=== PATIENT | female | born 1995 | race Hispanic/Latino ===

== ENCOUNTER 2017-04-14 21:48 | Emergency (ER) | payer MEDICAID, OTHER ==
[2017-04-14 22:44] LABS: BASOPHILS % (AUTO) 0.5 % (0.0-5.0); EOSINOPHILS % (AUTO) 0.3 % (0.0-8.0); HEMATOCRIT 39.4 % (36-48); LYMPHOCYTES % (AUTO) 27.4 % (21.0-51.0); MEAN CORPUSCULAR HEMOGLOBIN 30.5 pg (27.0-33.0); MEAN CORPUSCULAR HGB CONC 34.3 g/dL (32.0-36.0); MEAN CORPUSCULAR VOLUME 88.9 fL (79-99); MONOCYTES % (AUTO) 7.6 % (3.0-13.0); NEUTROPHILS % (AUTO) 64.2 % (40.0-77.0); PLATELET COUNT (AUTO) 254 K/uL (130-400); RED BLOOD CELL COUNT(AUTO) 4.43 MIL/uL (4.00-5.50); RED CELL DISTRIBUTION WIDTH 13.3 % (11.0-15.5); WHITE BLOOD COUNT (AUTO) 10.1 K/uL (4.8-10.8)
[2017-04-14 22:56] LABS: CREATININE 0.6 mg/dL (0.5-1.5); POTASSIUM 3.5 mmol/L (3.5-5.1)
[2017-04-14 22:58] LABS: APPEARANCE,URINE Clear (CLEAR); BILIRUBIN,URINE Negative (NEGATIVE); COLOR,URINE Yellow (YELLOW); GLUCOSE, URINE (UA) Negative (NEGATIVE); KETONES,URINE 15 mg/dL (NEGATIVE); LEUKOCYTE ESTERASE ,URINE Small (NEGATIVE); NITRATE,URINE Negative (NEGATIVE); OCCULT BLOOD,URINE Small (NEGATIVE); PROTEIN,URINE Negative (NEGATIVE); UROBILINOGEN,URINE 0.2 mg/dL (0.2-1.0)
[2017-04-14 22:59] LABS: ALBUMIN 4.2 g/dL (3.5-5.0); BILIRUBIN,TOTAL 0.6 mg/dL (0.2-1.0); TOTAL PROTEIN, SERUM 8.4 g/dL (6.0-8.3)
[2017-04-14 23:02] LABS: HCG,QUAL RESULT NEGATIVE (NEGATIVE)
[2017-04-14 23:13] LABS: AMPHET/METH SCREEN,URINE NEGATIVE (NEGATIVE); BARBITURATE SCREEN, URINE NEGATIVE (NEGATIVE); BENZODIAZEPINES SCREEN,URINE NEGATIVE (NEGATIVE); CANNABINOID SCREEN,URINE NEGATIVE (NEGATIVE); COCAINE SCREEN,URINE NEGATIVE (NEGATIVE); OPIATE SCREEN,URINE NEGATIVE (NEGATIVE); PHENCYCLIDINE SCREEN,URINE NEGATIVE (NEGATIVE)
[2017-04-14 23:24] LABS: BACTERIA,URINE None Seen /HPF (None Seen); RBC,URINE 0-1 /HPF (0-1); SQUAMOUS EPITHELIAL CELL,UR Few /LPF (0-2); WBC,URINE 0-1 /HPF (0-1)
== END 2017-04-14 23:35 | disposition home or self-care (01) ==
LOC: EDH 21:48
DX: R10.32 Left lower quadrant pain (principal)
CPT/HCPCS: 36415; 80053; 80305; 81001; 81025; 83690; 85025

== ENCOUNTER 2019-03-27 22:56 | Emergency (ER) | payer OTHER ==
[2019-03-27 23:17] LABS: APPEARANCE,URINE Clear (CLEAR); BILIRUBIN,URINE Negative (NEGATIVE); COLOR,URINE Yellow (YELLOW); GLUCOSE, URINE (UA) Negative (NEGATIVE); KETONES,URINE Negative (NEGATIVE); LEUKOCYTE ESTERASE ,URINE Negative (NEGATIVE); NITRATE,URINE Negative (NEGATIVE); OCCULT BLOOD,URINE Negative (NEGATIVE); PROTEIN,URINE Negative (NEGATIVE)
[2019-03-27 23:20] LABS: HCG,QUAL RESULT NEGATIVE (NEGATIVE)
[2019-03-27] MEDS ORDERED: ONDANSETRON HCL 4 MG/2 ML VIAL ONE (23:20)
[2019-03-27] MEDS ORDERED: KETOROLAC TROMETHAMINE 30MG/ML ONE (23:20)
[2019-03-27] MEDS ORDERED: SODIUM CHLORIDE 0.9% 1000ML 1,000 ML IV ONE (23:21)
[2019-03-27 23:27] LABS: BASOPHILS % (AUTO) 0.3 % (0.0-5.0); EOSINOPHILS % (AUTO) 2.4 % (0.0-8.0); HEMATOCRIT 41.6 % (36-48); LYMPHOCYTES % (AUTO) 29.7 % (21.0-51.0); MEAN CORPUSCULAR HGB CONC 32.9 g/dL (32.0-36.0); MONOCYTES % (AUTO) 6.8 % (3.0-13.0); NEUTROPHILS % (AUTO) 60.5 % (40.0-77.0); PLATELET COUNT (AUTO) 186 K/uL (130-400); RED BLOOD CELL COUNT(AUTO) 4.57 MIL/uL (4.00-5.50); RED CELL DISTRIBUTION WIDTH 12.4 % (11.0-15.5); WHITE BLOOD COUNT (AUTO) 6.3 K/uL (4.8-10.8)
[2019-03-27 23:30] LABS: AMPHET/METH SCREEN,URINE NEGATIVE (NEGATIVE); BARBITURATE SCREEN, URINE NEGATIVE (NEGATIVE); BENZODIAZEPINES SCREEN,URINE NEGATIVE (NEGATIVE); CANNABINOID SCREEN,URINE NEGATIVE (NEGATIVE); COCAINE SCREEN,URINE POSITIVE (NEGATIVE); OPIATE SCREEN,URINE NEGATIVE (NEGATIVE); PHENCYCLIDINE SCREEN,URINE NEGATIVE (NEGATIVE)
[2019-03-27 23:38] LABS: CREATININE 0.7 mg/dL (0.5-1.5); POTASSIUM 3.2 mmol/L (3.5-5.1)
[2019-03-27 23:42] LABS: BILIRUBIN,TOTAL 0.7 mg/dL (0.2-1.0); TOTAL PROTEIN, SERUM 8.1 g/dL (6.0-8.3)
== END 2019-03-28 01:59 | disposition home or self-care (01) ==
LOC: EDH 22:56
DX: R10.84 Generalized abdominal pain (principal); F14.10 Cocaine abuse, uncomplicated; R19.7 Diarrhea, unspecified; R11.10 Vomiting, unspecified
CPT/HCPCS: 36415; 74176; 80053; 80305; 81003; 81025; 83690; 85025; 96361; 96374; 96375; 99285; J1885; J2405; J7030

== ENCOUNTER 2019-08-22 06:08 | Observation (INO) | payer MEDICAID, OTHER ==
[~2019-08-22] VITALS: Ht 154.9 cm; Wt 79.4 kg
[2019-08-22] MEDS ORDERED: ONDANSETRON HCL 4 MG/2 ML VIAL ONE (06:27)
[2019-08-22] MEDS ORDERED: METOCLOPRAMIDE 10 MG/2 ML VIAL ONE (06:27)
[2019-08-22 06:31] LABS: BASOPHILS % (AUTO) 0.3 % (0.0-5.0); EOSINOPHILS % (AUTO) 3.2 % (0.0-8.0); LYMPHOCYTES % (AUTO) 45.3 % (21.0-51.0); MEAN CORPUSCULAR HEMOGLOBIN 32.6 pg (27.0-33.0); MEAN CORPUSCULAR HGB CONC 34.2 g/dL (32.0-36.0); MEAN CORPUSCULAR VOLUME 95.3 fL (79-99); MONOCYTES % (AUTO) 7.9 % (3.0-13.0); NEUTROPHILS % (AUTO) 42.9 % (40.0-77.0); PLATELET COUNT (AUTO) 205 K/uL (130-400); RED BLOOD CELL COUNT(AUTO) 4.51 MIL/uL (4.00-5.50); RED CELL DISTRIBUTION WIDTH 11.6 % (11.0-15.5); WHITE BLOOD COUNT (AUTO) 6.9 K/uL (4.8-10.8)
[2019-08-22 06:42] LABS: CREATININE 0.8 mg/dL (0.5-1.5); POTASSIUM 3.3 mmol/L (3.5-5.1)
[2019-08-22 06:48] LABS: ALBUMIN 3.6 g/dL (3.5-5.0); BILIRUBIN,TOTAL 0.4 mg/dL (0.2-1.0); TOTAL PROTEIN, SERUM 7.6 g/dL (6.0-8.3)
[2019-08-22 06:58] LABS: APPEARANCE,URINE Cloudy (CLEAR); BILIRUBIN,URINE Negative (NEGATIVE); COLOR,URINE Yellow (YELLOW); GLUCOSE, URINE (UA) Negative (NEGATIVE); KETONES,URINE Negative (NEGATIVE); LEUKOCYTE ESTERASE ,URINE Trace (NEGATIVE); NITRATE,URINE Positive (NEGATIVE); OCCULT BLOOD,URINE Negative (NEGATIVE); PROTEIN,URINE Negative (NEGATIVE)
[2019-08-22 07:00] LABS: HCG,QUAL RESULT POSITIVE (NEGATIVE)
[2019-08-22 07:16] LABS: RBC,URINE 0-1 /HPF (0-1)
[2019-08-22 07:17] LABS: BACTERIA,URINE Moderate /HPF (None Seen)
[2019-08-22 07:29] LABS: AMPHET/METH SCREEN,URINE NEGATIVE (NEGATIVE); BARBITURATE SCREEN, URINE NEGATIVE (NEGATIVE); BENZODIAZEPINES SCREEN,URINE NEGATIVE (NEGATIVE); CANNABINOID SCREEN,URINE NEGATIVE (NEGATIVE); COCAINE SCREEN,URINE POSITIVE (NEGATIVE); OPIATE SCREEN,URINE NEGATIVE (NEGATIVE); PHENCYCLIDINE SCREEN,URINE NEGATIVE (NEGATIVE)
[2019-08-22 08:19] LABS: INR 0.91 (0.85-1.15); PARTIAL THROMBOPLASTIN TIME 25.4 SEC (26.3-35.5); PROTHROMBIN TIME 9.9 SEC (9.6-11.6)
--- NOTE | 2019-08-22 10:50 | NUR ---
DR. RAVINDRA GABRIEL AT BEDSIDE TO ASSESS AND DISCUSS POC WITH PT. PT IN AGREEMENT. QUESTIONS ANSWERED.
[2019-08-22] MEDS ORDERED: ACETAMINOPHEN EXTRA STRENGTH 500 MG TABLET PO PRN ×2 (12:00)
[2019-08-22 12:12] VITALS: BP 124/76
[2019-08-22] MEDS: LACTATED RINGERS 1000ML 1,000 ML IV SCH ×2 (13:23→22:01)
--- NOTE | 2019-08-22 15:11 | NUR ---
+UDS FOR COCAINE SW met with pt who was admitted for ectopic . Pt stated that she lives with her 5yro in a rental home. Pt is to [place] [facility], but they are currently . Pt drives, works, is self pay and gets no government assistance. Pt states she was not aware she was until she gave into ER. Pt informed that she was positive for cocaine at admission. Pt states she did use 2 days ago when she was out with friends. When asked where was son, pt stated he was with her mother Claudette Galicia [phone]. "He lives with her". I asked again, "does he live with you or your mother?" "He lives with my mother". Sw offered substance abuse resources and pt refused "I don't need them". Sw called local CPS office, pt has hx with CPS but no open case. Report made to CPS #[id number] to Linda jamison [phone].
[2019-08-22 16:26] VITALS: BP 104/55
[2019-08-22 19:49] VITALS: BP 128/65
--- NOTE | 2019-08-22 20:00 | NUR ---
STATUS NPO AFTER MIDNITE PER NURSES REPORT Addendum: 08/23/19 at 0313 by MITZI URBINA LVN Amended: Links added.
[2019-08-22 23:48] VITALS: BP 118/76
[2019-08-23] VITALS (20 sets, daily range): BP systolic 93–126; BP diastolic 38–83
--- NOTE | 2019-08-23 08:00 | NUR ---
PATIENT SIGNED CONSENT. PATIENT VERBALIZED UNDERSTANDING.
--- NOTE | 2019-08-23 08:20 | NUR ---
PATIENT LEFT UNIT VIA BED ACCOMPANIED BY MIRA TORREZ AND MAYRA DAMICO FOR PROCEDURE.
[2019-08-23] MEDS: LACTATED RINGERS 1000ML 1,000 ML IV SCH ×2 (08:30→10:55)
[2019-08-23] MEDS ORDERED: BUPIVACAINE/PF 0.5% 30ML VIAL ONE (08:40)
--- NOTE | 2019-08-23 08:40 | NUR ---
NANCY SLOAN OR NURSE INFORMED DR GABRIEL OF POSITIVE NITRATES AND RECEIVED NEW ORDERS.
[2019-08-23] MEDS ORDERED: CEFAZOLIN SODIUM 1 GM VIAL ONE (08:43)
--- NOTE | 2019-08-23 08:45 | NUR ---
OR PT TAKEN TO OR VIA BED IN NO DISTRESS AT THIS TIME
[2019-08-23] MEDS ORDERED: LIDOCAINE PF 2% 5ML ABBOJECT ONE (08:46)
[2019-08-23] MEDS ORDERED: DEXAMETHASONE SOD PHOSPHATE 10MG/ML 1ML VIAL ONE (08:46)
[2019-08-23] MEDS ORDERED: MIDAZOLAM HCL 1 MG/ML 2ML VIAL ONE (08:47)
[2019-08-23] MEDS ORDERED: ONDANSETRON HCL 4 MG/2 ML VIAL ONE (08:47)
[2019-08-23] MEDS ORDERED: PROPOFOL 10 MG/ML 20ML VIAL IV ONE (08:47)
[2019-08-23] MEDS ORDERED: ROCURONIUM 10MG/1ML SYR 10 MG/ML ML ONE (08:47)
[2019-08-23] MEDS ORDERED: FENTANYL CITRATE PF 50 MCG/1 ML 2ML VIAL ONE (08:47)
[2019-08-23] MEDS ORDERED: GLYCOPYRROLATE 1 MG/5 ML SYRINGE ONE (09:53)
[2019-08-23] MEDS ORDERED: NEOSTIGMINE 5MG/5ML SYR IV ONE (09:53)
[2019-08-23] MEDS ORDERED: MEPERIDINE-PF 25 MG/ML SYG ONE ×2 (10:43→10:53)
[2019-08-23] MEDS ORDERED: DEXTROSE 5 %-0.45 % NACL 1,000 ML IV PRN (11:32)
[2019-08-23] MEDS ORDERED: IBUPROFEN 600 MG TABLET PO PRN (11:45)
[2019-08-23] MEDS ORDERED: DOCUSATE SODIUM 100 MG CAP PO PRN (11:45)
[2019-08-23] MEDS ORDERED: MEPERIDINE-PF 75 MG/ML SYG IM PRN (11:45)
[2019-08-23] MEDS ORDERED: SIMETHICONE 80 MG TAB.CHEW PO PRN (11:45)
[2019-08-23] MEDS ORDERED: BISACODYL 10 MG SUPP.RECT RC PRN (11:45)
[2019-08-23] MEDS ORDERED: ACETAMINOPHEN-CODEINE 300/30MG TAB PO PRN (11:45)
[2019-08-23] MEDS ORDERED: PROMETHAZINE HCL 25 MG/ML 1ML AMPULE IM PRN ×2 (11:45)
--- NOTE | 2019-08-23 11:52 | NUR ---
CPS Sw recd call from Trung Smith [phone] CPS case wker. MARY answered all questions asked. Trung to come she pt later today.
--- NOTE | 2019-08-23 13:57 | NUR ---
CPS Trung Rich, CPS casewker [phone] is here to meet with pt related to positive UDS for cocaine on admission, pt has 5yro son at home.
--- NOTE | 2019-08-23 14:08 | NUR ---
CPS Sw spoke to christy Nino. Pt refused to cooperate with CPS. CPs to f/u with family as to location and safety of son.
--- NOTE | 2019-08-23 14:20 | NUR ---
DR. GABRIEL CALLED AND WAS UPDATED ON PATIENT'S STATUS. PATIENT OKAY FOR DISCHARGE TODAY AT 1700. FOLLOW UP IN 1 WEEK.
--- NOTE | 2019-08-23 15:05 | NUR ---
CPS Sw recd call from nurse Santiago. Pt is upset that she was reported to CPS and wants to speak to SW. SW recd call from Trung, WILDA harrison. Trung is here to meet with pt again. Pt called him and requested he come back to hospital and meet with her. Per Trung, he asked I let him meet with pt and he will calm her. Sw to follow and assist as needed
--- NOTE | 2019-08-23 17:00 | NUR ---
DISCHARGE INSTRUCTIONS READ AND EXPLAINED TO PATIENT. INCISION CARE REVIEWED. RX FOR TYLENOL #3 AND KEFLEX 250MG HANDED TO PATIENT. PATIENT VOICED UNDERSTANDING ON ALL INFORMATION.
--- NOTE | 2019-08-23 17:15 | NUR ---
PATIENT LEFT UNIT VIA WHEELCHAIR WITH BELONGINGS IN HAND. PERSONAL VEHICLE USED FOR TRANSPORTATION. NO COMPLAINTS OR CONCERNS ADDRESSED FROM PATIENT ON DISCHARGE.
== END 2019-08-23 17:15 | disposition home or self-care (01) ==
LOC: EDH 06:08 → EDHIP 06:09 → WSH 10:50
PROVIDERS: ADMIT Obstetrics & Gynecology; ATTEND Obstetrics & Gynecology
DX: O00.90 Unspecified ectopic pregnancy without intrauterine pregnancy (principal); R11.10 Vomiting, unspecified; F17.200 Nicotine dependence, unspecified, uncomplicated; Z98.891 History of uterine scar from previous surgery
CPT/HCPCS: 36415 ×2; 58120; 59151; 76801; 76817; 80053; 80305; 81001; 81025; 83690; 84702 ×2; 85014 ×2; 85018 ×2; 85025; 85610; 85730; 86850; 86900; 86901; 87088; 96360; 96361 ×2; 99285; A4213; A4215; A4216; A4222; A4223; A4351; A4649 ×4; A4930 ×2; C1769; G0378 ×31; J0690; J1100; J2001; J2175; J2250; J2405 ×2; J2704; J2710; J2765; J3010; J3490 ×2; J7120 ×4

== ENCOUNTER 2019-09-02 05:02 | Emergency (ER) | payer MEDICAID ==
[2019-09-02] MEDS ORDERED: ONDANSETRON ODT 4 MG TAB ONE (06:42)
[2019-09-02] MEDS ORDERED: HYDROCODONE/ACETAMINOPHEN 5/325 MG TAB ONE (06:42)
== END 2019-09-02 06:53 | disposition home or self-care (01) ==
LOC: EDH 05:02
DX: S80.212A Abrasion, left knee, initial encounter (principal); M25.531 Pain in right wrist; Z72.0 Tobacco use; V89.2XXA Person injured in unspecified motor-vehicle accident, traffic, initial encounter; Y93.89 Activity, other specified; Y92.488 Other paved roadways as the place of occurrence of the external cause; Y99.8 Other external cause status
CPT/HCPCS: 73090; 73110; 73562; 81025

== ENCOUNTER 2020-08-16 18:47 | Observation (INO) | payer MEDICAID ==
[~2020-08-16] VITALS: Ht 154.9 cm; Wt 86.2 kg
[2020-08-16 19:07] VITALS: BP 118/84
[2020-08-16] MEDS ORDERED: LACTATED RINGERS 1000ML IV PRN (19:15)
[2020-08-16 19:20] LABS: APPEARANCE,URINE Clear (CLEAR); BILIRUBIN,URINE Negative (NEGATIVE); COLOR,URINE Yellow (YELLOW); GLUCOSE, URINE (UA) Negative (NEGATIVE); KETONES,URINE Negative (NEGATIVE); LEUKOCYTE ESTERASE ,URINE Negative (NEGATIVE); NITRATE,URINE Negative (NEGATIVE); OCCULT BLOOD,URINE Negative (NEGATIVE); PH,URINE 6.5 (5.0-8.0); PROTEIN,URINE Negative (NEGATIVE)
[2020-08-16] MEDS ORDERED: ONDANSETRON HCL 4 MG/2 ML VIAL IVP SCH (21:20)
== END 2020-08-16 21:34 | disposition home or self-care (01) ==
LOC: EDH 18:47 → LDH 19:04
PROVIDERS: ADMIT Specialist; ATTEND Specialist
DX: O26.893 Other specified pregnancy related conditions, third trimester (principal); R10.9 Unspecified abdominal pain; Z87.891 Personal history of nicotine dependence; Z87.19 Personal history of other diseases of the digestive system; Z3A.37 37 weeks gestation of pregnancy
CPT/HCPCS: 59025; 81003; 96360; 96361; 99284; G0378 ×2

== ENCOUNTER 2023-02-04 16:07 | Emergency (ER) | payer MEDICAID ==
[~2023-02-04] VITALS: Ht 154.9 cm; Wt 86.2 kg
[~2023-02-04 16:07] MED LIST: PNV11TAB5 PO
[2023-02-04] MEDS ORDERED: ACETAMINOPHEN 500 MG TABLET PO ONE (18:30)
[2023-02-04] MEDS ORDERED: ONDANSETRON 4MG INJ IVP ONE (18:30)
[2023-02-04] MEDS ORDERED: 0.9%NACL 1000ML 1,000 ML IV ONE (18:30)
[2023-02-04 18:51] LABS: BASOPHILS # (AUTO) 0.02 K/uL (0.00-0.20); BASOPHILS % (AUTO) 0.2 % (0.0-5.0); EOSINOPHILS # (AUTO) 0.08 K/uL (0.00-0.70); EOSINOPHILS % (AUTO) 0.9 % (0.0-8.0); HEMATOCRIT 38.3 % (36-48); IMMATURE GRANULOCYTE ABSOLUTE 0.02 K/uL (0-1); LYMPHOCYTES # (AUTO) 2.2 K/uL (1.0-4.8); LYMPHOCYTES % (AUTO) 26.4 % (21.0-51.0); MEAN CORPUSCULAR HEMOGLOBIN 31.1 pg (27.0-33.0); MEAN CORPUSCULAR VOLUME 88.9 fL (79-99); MONOCYTES # (AUTO) 0.5 K/uL (0.1-1.0); MONOCYTES % (AUTO) 6.3 % (3.0-13.0); NEUTROPHILS # (AUTO) 5.6 K/uL (1.8-7.7); PLATELET COUNT (AUTO) 250 K/uL (130-400); RED BLOOD CELL COUNT(AUTO) 4.31 MIL/uL (4.00-5.50); RED CELL DISTRIBUTION WIDTH 12.1 % (11.0-15.5); WHITE BLOOD COUNT (AUTO) 8.5 K/uL (4.8-10.8)
[2023-02-04 19:04] LABS: CREATININE 0.5 mg/dL (0.5-1.5); POTASSIUM 3.9 mmol/L (3.5-5.1)
[2023-02-04 19:30] LABS: ALBUMIN 3.8 g/dL (3.5-5.0); BILIRUBIN,TOTAL 0.4 mg/dL (0.2-1.0); TOTAL PROTEIN, SERUM 8.2 g/dL (6.0-8.3)
[2023-02-04 21:03] LABS: APPEARANCE,URINE CLEAR (CLEAR); BILIRUBIN,URINE NEGATIVE (NEGATIVE); COLOR,URINE YELLOW (YELLOW); GLUCOSE, URINE (UA) NEGATIVE (NEGATIVE); KETONES,URINE 60 mg/dL (NEGATIVE); LEUKOCYTE ESTERASE ,URINE NEGATIVE Leu/uL (NEGATIVE); NITRATE,URINE NEGATIVE (NEGATIVE); OCCULT BLOOD,URINE NEGATIVE (NEGATIVE); PH,URINE 5.5 (5.0-8.0); PROTEIN,URINE NEGATIVE (NEGATIVE); UROBILINOGEN,URINE 0.2 mg/dL (0.2-1.0)
[2023-02-04 21:04] LABS: ADD UA MICROSCOPIC YES
[2023-02-04 21:06] LABS: BACTERIA,URINE RARE /HPF (None Seen); MUCUS,URINE FEW LPF (None Seen); RBC,URINE 0-1 /HPF (0-1); SQUAMOUS EPITHELIAL CELL,UR MOD /HPF (0-2); WBC,URINE 0-1 /HPF (0-1)
[2023-02-04] MEDS ORDERED: ONDA4TAB10 PO (22:23)
[2023-02-04 22:37] VITALS: BP 112/68; PULSE 72; RESP 18; O2SAT 100
== END 2023-02-04 22:43 | disposition home or self-care (01) ==
LOC: EDH 16:07
DX: O26.891 Other specified pregnancy related conditions, first trimester (principal); R11.2 Nausea with vomiting, unspecified; R10.2 Pelvic and perineal pain; Z3A.09 9 weeks gestation of pregnancy
CPT/HCPCS: 99285; 96374; 76801; 96361; 80053; 84703; 84702; 85025; 81001; 36415; J7030; J2405